=== PATIENT | female | born 1960 | race Two or more races ===

== ENCOUNTER 2025-02-21 11:30 | Outpatient (RCR) | payer MEDICAID, SELFPAY ==
--- NOTE | 2025-02-11 11:47 | PT.OIERPT ---
PT OP Initial Eval Patient Information Outpatient Physical Therapy Treatment Date: 02/11/25 Visit Reasons: left knee PAIN Medical Diagnosis: Left Knee OA Treatment Dx #1: Left Knee Pain Start of Care: 02/11/25 Date of Onset: 2 years ago Smoking Status Smoking Status: Never smoker Initial Assessment Subjective: Pt is a 64 y/o female reports of left knee pain (8/10). Pt confirmed her knee is bone on bone. Pt has limitation with walking, standing, chores, balance, self care, cooking, and squatting motions. Pt received a shot in her knee ~ 1year ago which help. Pt has not seen a surgeon. Objective: Left Knee AROM: all motions are WFL with pain Left Knee MMTs: grossly 4-/5 Left Hip MMTs: grossly 3+/5 Special Test (+) Ashley Assessment: Pt demonstrate left knee pain with mobility deficits leading to difficulty with ADLs. Pt will attempt physical therapy if pain persist Pt will be refer back to provider for further consultation. Short Term and Clinical Psychologist Licensed Goals 1) Increase left knee AROM WNL in 6 wks to be able to perform chores 2) Decrease knee pain to 2/10 in 6 wks to be able to stand more than 30 mins 3) Increase left knee MMTs grossly to 4/5 in 6 wks to be able to perform stairs and steps 4) Increase left hip MMTs grossly to 4-/5 in 6 wks to be able to perform recreational activities 5) Indep with HEP Treatment Plan 1) Manual Therapy 2) Therapeutic Activities 3) Therapeutic Exercises 4) Modalities (ice, heat) 5) Balance Training Frequency and Duration: 2 x wk for 6 wks Certification Dates: 02/11/25 to 05/13/25 Procedure Charges OP PT Eval Mod Complex 30 minutes: Yes
--- NOTE | 2025-02-19 12:04 | PT.ODAYNRPT ---
PT Outpatient Daily Note OP Daily Note Outpatient Physical Therapy Treatment Date: 02/19/25 Visit Reasons: left knee PAIN Subjective: Pt mentioned that her knee hurts worst in the night. Objective: Please see flow sheet for ther ex list. Assessment: Interventions completed with minimal pain. Plan: Continue with pOC. Assess response to treatment. Length of Time (minutes) of Treatment: 30 Minutes Procedure Charges Therapeutic Exercise 30 minutes: Yes
--- NOTE | 2025-02-21 11:52 | PT.ODAYNRPT ---
PT Outpatient Daily Note OP Daily Note Outpatient Physical Therapy Treatment Date: 02/21/25 Visit Reasons: left knee PAIN Subjective: Pt's knee was sore after last session, however, notice she's been able to sleep longer. Objective: Please see flow chart for list of ther ex performed Assessment: difficulty with heel slide to full ROM due to left hip pain; patient instructed to work up to the pain. Plan: Continue with PT Length of Time (minutes) of Treatment: 30 Minutes Procedure Charges Therapeutic Exercise 30 minutes: Yes
== END 2025-02-26 23:59 | disposition home or self-care (01) ==
LOC: CPTX 11:30
DX: M25.562 Pain in left knee (principal); R26.2 Difficulty in walking, not elsewhere classified; R26.89 Other abnormalities of gait and mobility; M17.12 Unilateral primary osteoarthritis, left knee
CPT/HCPCS: 97110; 97162

== ENCOUNTER 2025-03-28 14:30 | Outpatient (RCR) | payer MEDICAID, SELFPAY ==
--- NOTE | 2025-03-01 13:35 | PT.ODAYNRPT ---
PT Outpatient Daily Note OP Daily Note Outpatient Physical Therapy Treatment Date: 03/01/25 Visit Reasons: left knee pain Subjective: Pt c/o minimal L knee pain. Objective: Please see flow sheet. Assessment: Added stationary bicycle, per performed for ~3 minutes, L knee symptoms aggravated discontinued exercise. Plan: Continue with poC. Length of Time (minutes) of Treatment: 30 Minutes Procedure Charges Therapeutic Exercise 30 minutes: Yes
--- NOTE | 2025-03-06 13:56 | PT.ODAYNRPT ---
PT Outpatient Daily Note OP Daily Note Outpatient Physical Therapy Treatment Date: 03/06/25 Visit Reasons: left knee pain Subjective: Pt reported L knee is feeling better compared to last PT session. Objective: Please see flow sheet. Assessment: Pt presents in clinic with decrease pain allowing for progression of intervention. Plan: Continue with poC. Length of Time (minutes) of Treatment: 30 Minutes Procedure Charges Therapeutic Exercise 30 minutes: Yes
--- NOTE | 2025-03-06 15:11 | PT.ODAYNRPT ---
PT Outpatient Daily Note OP Daily Note Outpatient Physical Therapy Treatment Date: 03/06/25 Visit Reasons: left knee pain Subjective: Pt reports knee is doing a little better. Objective: Please see flow sheet for ther ex list. Assessment: Added light resistance band for hip strengthening interventions, pt completed with no pain to report. Plan: Progress as tolerated. Length of Time (minutes) of Treatment: 30 Minutes Procedure Charges Therapeutic Exercise 30 minutes: Yes
--- NOTE | 2025-03-12 14:32 | PT.ODAYNRPT ---
PT Outpatient Daily Note OP Daily Note Outpatient Physical Therapy Treatment Date: 03/12/25 Visit Reasons: left knee pain Subjective: Pt reports L knee is doing ok, went to dance therapy this morning. Objective: Please see flow sheet for ther ex list. Assessment: Pt demonstrates poor/fair endurance had to rest in between exercise reps and in between closed chain interventions. Plan: Continue with poC. Length of Time (minutes) of Treatment: 30 Minutes Procedure Charges Therapeutic Exercise 30 minutes: Yes
--- NOTE | 2025-03-14 14:18 | PT.ODAYNRPT ---
PT Outpatient Daily Note OP Daily Note Outpatient Physical Therapy Treatment Date: 03/14/25 Visit Reasons: left knee pain Subjective: Pt reports her L knee is really bothering her today, does not recall doing anything strenuous. Pt thinks it might be due to the cold weather. Objective: Please see flow sheet for ther ex list. Assessment: Modified interventions to accommodate reported pain. Plan: Continue with pOC. Assess response to treatment. Length of Time (minutes) of Treatment: 30 Minutes Procedure Charges Therapeutic Exercise 30 minutes: Yes
--- NOTE | 2025-03-21 13:29 | PT.ODAYNRPT ---
PT Outpatient Daily Note OP Daily Note Outpatient Physical Therapy Treatment Date: 03/21/25 Visit Reasons: left knee pain Subjective: Pt reports L knee is doing ok, notices she can move it more now making it easier to apply socks but still has pain. Objective: Please see flow sheet for ther ex list. Assessment: Pt presents in clinic iwht decrease pain allowing for interventions progression. Plan: Continue with pOC. Assess response to treatment. Length of Time (minutes) of Treatment: 30 Minutes Procedure Charges Therapeutic Exercise 30 minutes: Yes
--- NOTE | 2025-03-26 14:33 | PT.ODAYNRPT ---
PT Outpatient Daily Note OP Daily Note Outpatient Physical Therapy Treatment Date: 03/26/25 Visit Reasons: left knee pain Subjective: Pt reports L knee is doing a little better today. Objective: Please see flow sheet for ther ex list. Assessment: Progressing interventions as tolerated. Plan: Continue with poC. Length of Time (minutes) of Treatment: 30 Minutes Procedure Charges Therapeutic Exercise 30 minutes: Yes
--- NOTE | 2025-03-28 15:12 | PT.ODAYNRPT ---
PT Outpatient Daily Note OP Daily Note Outpatient Physical Therapy Treatment Date: 03/28/25 Visit Reasons: left knee pain Subjective: Pt reports L knee is doing better, notices she can bend it with less difficulty. Objective: Please see flow sheet for ther ex list. Assessment: Pt presents in clinic with no decrease pain allowing for intervention progression. Plan: Continue with pOC. Length of Time (minutes) of Treatment: 30 Minutes Procedure Charges Therapeutic Activity 30 minutes: Yes
== END 2025-03-29 23:59 | disposition home or self-care (01) ==
LOC: CPTX 14:30
DX: M25.562 Pain in left knee (principal); R26.2 Difficulty in walking, not elsewhere classified; R26.89 Other abnormalities of gait and mobility; M17.12 Unilateral primary osteoarthritis, left knee
CPT/HCPCS: 97110; 97530

== ENCOUNTER 2025-04-04 13:00 | Outpatient (RCR) | payer MEDICAID, SELFPAY ==
--- NOTE | 2025-04-02 13:51 | PT.ODAYNRPT ---
PT Outpatient Daily Note OP Daily Note Outpatient Physical Therapy Treatment Date: 04/02/25 Visit Reasons: left knee pain Subjective: Pt reports L knee is hurting today, shared that he has good and bad days. Pt shared that she notices she can bend her knee more making easier to apply socks. Objective: Please see flow sheet for ther ex list. Assessment: Regressed interventions to accommodate reported pain today. Plan: Continue with pOC. Length of Time (minutes) of Treatment: 30 Minutes Procedure Charges Therapeutic Exercise 30 minutes: Yes
--- NOTE | 2025-04-04 13:42 | PT.ODAYNRPT ---
PT Outpatient Daily Note OP Daily Note Outpatient Physical Therapy Treatment Date: 04/04/25 Visit Reasons: left knee pain Subjective: Pt reports L knee is sore and painful today. Objective: Please see flow sheet for ther ex list. Assessment: Regressed interventions to accommodate reported pain. Slow progress in clinic. Plan: Assess for note. Length of Time (minutes) of Treatment: 30 Minutes Procedure Charges Therapeutic Exercise 30 minutes: Yes
--- NOTE | 2025-04-11 11:51 | PT.ODS1RPT ---
PT OP Progress/Discharge Note Date of Service: 04/11/25 Progress Note/DC Note Progress Note/Discharge Note: Progress Note Patient Information Visit Reasons: left knee pain Medical Diagnosis: Left Knee OA Treatment Dx #1: Left Knee Pain Service Continue Service or Discharge: Continue Service Certification Date Certification Dates: 04/11/25 to 07/12/25 Status Subjective: Pt's still hurts intermittent, however, has been able to stand, walk, and perform chores with less limitation. Pt will like to attempt a few more therapy sessions prior to returning to [facility]. Objective: Left Knee AROM: all motions are WNL Left Knee MMTs: grossly 4-/5 Left Hip MMTs: grossly 3+/5 Special Test (+) Ashley Assessment: Pt slowly improve with overall knee mobility and strenngth, however, continues to have intermittent knee pain. Pt has not met set goals and will continue to benefit from physical therapy to work on knee stability and strength; thank you for your referrals. Plan: Continue with PT/POC and add 6 sessions (2 x wk for 3 wks)
== END 2025-04-28 23:59 | disposition home or self-care (01) ==
LOC: CPTX 13:00
DX: M25.562 Pain in left knee (principal); R26.2 Difficulty in walking, not elsewhere classified; R26.89 Other abnormalities of gait and mobility; M17.12 Unilateral primary osteoarthritis, left knee
CPT/HCPCS: 97110